=== PATIENT | male | born 1965 | race Caucasian/White ===

== ENCOUNTER 2025-06-22 19:28 | Outpatient (CLI) | payer BC, SELFPAY | END 2025-06-22 19:29 | disposition home or self-care (01) | LOC: AMB 06-25 11:09 | PROVIDERS: Visit Provider Student in an Organized Health Care Education/Training Program | DX: R42 Dizziness and giddiness (principal); R11.2 Nausea with vomiting, unspecified | CPT/HCPCS: A0425; A0427 ==